=== PATIENT | female | born 1985 | race Caucasian/White ===

== ENCOUNTER 2024-02-12 07:21 | Outpatient (AMB) | payer OTHER, SELFPAY ==
[2024-02-12 07:34] VITALS: BP 122/78; PULSE 75; O2SAT 98; BMI 28.4
--- NOTE | 2024-02-12 07:34 | MHC.PC.OV ---
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: No Accompanied by: Self / Same As Patient Allergies No Known Allergies [No Known Allergies*] Allergy (Verified 02/12/24 07:44) Medication List - Last Reconciled 02/12/24 by Shona Sams MD No Known Home Meds Tobacco use date assessed: 02/12/24 Dental Screening Dental Screen Date: 02/12/24 Did you have a dental visit in the last 12 months?: No Did you have a dental problem in the last 6 months where you did not have access to dental care?: No Was dental information given to patient?: Patient has dentist HPI HPI Comments History of Present Illness Details This is a 38-year-old female that comes for her physical exam as a new patient. Last Pap smear was a year or 2 ago and he was normal as per patient. She does complains of having bronchitis once a year and requiring rescue inhaler that seems to help most likely due to mild persistent asthma. Has never had a pulmonary function test and this is why I will refer her to pulmonology. [facility] Surgical History (Updated 02/12/24 @ 07:48 by Shona Sams MD) Previous section Family History Mother Diabetes Father No problems noted. Brother No problems noted. Brother No problems noted. Sister Hypercholesteremia Son No problems noted. Son No problems noted. Daughter No problems noted. Other Mental health disorder Social History (Updated 02/12/24 @ 07:48 by Shona Sams MD) Housing: House Alcohol intake: current Alcohol intake frequency: holidays/special occasions only Alcohol type: beer and other Patient Tobacco Use Status: Never used Tobacco Tobacco use type: Cigarette e-Cigarette/Vaping Use: Never Used Second Hand Smoke Exposure: No service: No Current occupational status: unemployed Current occupational exposures/hazards: No Cognitive needs: No Hearing needs: No Vision needs: Yes Questionnaire PHQ-9 Over the last 2 weeks, how often have you been bothered by any of the following problems? 1. Little interest or pleasure in doing things: not at all 2. Feeling down, depressed, or hopeless: not at all 3. Trouble falling or staying asleep, or sleeping too much: not at all 4. Feeling tired or having little energy: not at all 5. Poor appetite or overeating: not at all 6. Feeling bad about yourself - or that you are a failure or have let yourself or your family down: not at all 7. Trouble concentrating on things, such as reading the newspaper or watching television: not at all 8. Moving or speaking so slowly that other people could have noticed. Or the opposite - being so fidgety or restless that you have been moving around a lot more than usual: not at all 9. Thoughts that you would be better off or of hurting yourself in some way: not at all Total score: 0 Depression Screening Interpretation: Negative Depression Screening Done: Yes 09604 - PHQ-9 Billing: Yes Source: Developed by Drs. Benjamin Bae, Bree Almendarez, Damián Campos and colleagues, with an educational karen from [employer]. Thrive Questionnaire Date Thrive assessed: 02/12/24 I am a: Patient What is your living situation today?: I have a steady place to live Within the past 12 months, did the food you bought not last and you didn't have the money to get more?: Never true Within the past 12 months, did you worry whether your food would run out before you got money to buy more?: Never true Do you have trouble paying for medicines?: No Do you have trouble getting transportation to medical appointments?: No Do you have trouble paying your heating and electricity bill?: No Do you have trouble taking care of your child, family member or friend?: No Do you have trouble with day-to-day activities such as bathing, preparing meals, shopping, managing finances, etc.?: No Are you currently unemployed and looking for a job?: No Are you interested in more education?: No Currently or been in a relationship where the following occur: No concerns reported THRIVE Score: 0 AUDIT C Alcohol Use Questionnaire (AUDIT-C) 1. How often do you have a drink containing alcohol?: Monthly or less 2. How many drinks containing alcohol do you have on a typical day when you are drinking?: 1 or 2 3. How often do you have six or more drinks on one occasion?: Never Total Score: 1 Score Reviewed/Action Taken: No DINORA-7 AMB Questionnaire DINORA-7 Date DINORA - 7 assessed: 02/12/24 Feeling nervous, anxious, or on edge: 0 = Not at all Not being able to stop or control worryin = Not at all Worrying too much about different things: 0 = Not at all Trouble relaxin = Not at all Being so restless that it is hard to sit still: 0 = Not at all Becoming easily annoyed or irritable: 0 = Not at all Feeling afraid as if something awful might happen: 0 = Not at all Total DINORA-7 score (0-4 normal; 5-9 mild; 10-14 moderate; 15-21 severe): 0 Source: Developed by Drs. Benjamin Bae, Bree Almendarez, Damián Campos and colleagues, with an educational karen from [employer]. DINORA-7 Assessment Billing DINORA-7 Assessment Tool: DINORA-7 Assessment 04479 Review of Systems Const All systems reviewed & are unremarkable except as noted in HPI and below Card Denies chest pain at rest, Denies chest pain with activity, Denies edema, Denies irregular heart rhythm, Denies claudication, Denies dyspnea, Denies dyspnea on exertion, Denies orthopnea, Denies paroxysmal nocturnal dyspnea and Denies slow heart rate Resp Denies cough, Denies dyspnea and Denies dyspnea on exertion GI Denies abdominal pain, Denies change in bowel habits, Denies excessive flatus, Denies nausea and Denies vomiting Denies urinary incontinence, Denies urinary hesitancy and Denies urinary urgency Musc Denies abnormal gait, Denies atrophy, Denies deformity and Denies limited range of motion Neuro Denies abnormal gait and Denies lack of coordination Physical exam (Primary Care) Vital Signs: Last Vital Signs Pulse 75 02/12/24 07:34 BP 122/78 02/12/24 07:34 Pulse Ox 98 02/12/24 07:34 Oxygen Delivery Method Room Air 02/12/24 07:34 BMI result Body Mass Index 28.4 Tobacco/Smoking Status: Tobacco use Status Tobacco use date assessed 02/12/24 02/12/24 07:43 Patient Tobacco Use Status Never used Tobacco 02/12/24 07:43 Tobacco use type Cigarette 02/12/24 07:43 e-Cigarette/Vaping Use Never Used 02/12/24 07:43 PHQ-9: PHQ-9 Score PHQ-9: Total score 0 02/12/24 07:43 Depression Screening Interpretation: Negative Thrive Assessment: Date of Thrive Assessment Date Thrive assessed 02/12/24 02/12/24 07:43 Currently or been in a relationship where the following occur: No concerns reported Const Orientation/consciousness: patient oriented x3 HENMT Head: Yes normal to inspection, Yes normocephalic and Yes atraumatic Ears: external ears normal Eyes General: appearance normal, both eyes and all related structures Eyelids: Yes eyelids normal Conjunctivae: conjunctivae normal Neck Neck: Yes normal visual inspection and Yes supple Resp Effort & Inspection: normal respiratory effort Auscultation: clear to auscultation bilaterally Cardio Jugular venous distension: no JVD Rate: regular rate Rhythm: regular rhythm Heart sounds: S1 normal heart sound present and S2 normal heart sound present GI Inspection: Yes normal to inspection Palpation (GI): Soft to palpation and nontender Auscultation: normal bowel sounds Skin General skin exam: no rashes or lesions noted Neuro General: patient oriented x3 and no focal motor deficits Extrem General: Yes full ROM Psych Appearance: grossly normal Assessment and Plan Assessment & Plan (1) Physical exam: Code(s): Z00.00 - Encounter for general adult medical examination without abnormal findings Plan: Repeat in a year. (2) Mild persistent asthma: Code(s): J45.30 - Mild persistent asthma, uncomplicated Qualifiers: Asthma complication type: uncomplicated Qualified Code(s): J45.30 - Mild persistent asthma, uncomplicated Plan: Referred to pulmonology. Orders: Orders Thyroid Stimulating Hormone Today E66.3 - Overweight Comprehensive [place]. Panel Fast Today Z00.00 - Encounter for general adult medical examination without abnormal findings Lipid Panel Today Z00.00 - Encounter for general adult medical examination without abnormal findings Complete Blood Count Auto Diff Today E66.3 - Overweight Referrals Pulmonology Referral J45.30 - Mild persistent asthma, uncomplicated Coding Level of Care Code Tele New Pt Level 3 (92191) New Pt Prev Care 18-39yr(15247 Diagnoses Physical exam Z00.00 Mild persistent asthma without complication J45.30 Asthma complication type: uncomplicated Additional Codes DINORA-7 Assessment Billing - DINORA-7 Assessment Tool: DINORA-7 Assessment 86700 ([id number]) Time Spent (min) 32
== END 2024-02-12 08:02 | disposition home or self-care (01) ==
PROVIDERS: PCP Internal Medicine; Visit Provider Internal Medicine
DX: Z00.00 Encounter for general adult medical examination without abnormal findings (principal); J45.30 Mild persistent asthma, uncomplicated
CPT/HCPCS: 99385

== ENCOUNTER 2024-04-17 08:08 | Outpatient (REF) | payer OTHER, SELFPAY ==
[2024-04-17 10:15] LABS: MANUAL DIFF FLAG NO
[2024-04-17 10:19] LABS: Basophils Percent Auto 0.7 % (0-2); Eosinophils Absolute Auto 0.1 X10*3/uL (0.0-0.4); Eosinophils Percent Auto 2.3 % (0-4); Hematocrit 44.5 % (37.0-47.0); Hemoglobin 14.6 g/dl (12.0-16.0); Imm Gran Abs Auto 0.02 X10*3/uL (0.00-0.03); Imm Gran Pct Auto 0.4 % (0.0-0.4); Lymphocytes Absolute Auto 1.4 X10*3/uL (1.2-4.9); Lymphocytes Percent Auto 24.8 % (20-40); Mean Corpuscular HGB Conc 32.8 g/dl (31.0-35.0); Mean Corpuscular Hemoglobin 30.1 pg (27.0-33.0); Mean Corpuscular Volume 91.8 fL (80.0-98.0); Mean Platelet Volume 11.1 fL (9.4-12.3); Monocytes Absolute Auto 0.6 X10*3/uL (0.1-1.2); Monocytes Percent Auto 11.2 % (2-11); Neutrophils Absolute Auto 3.4 x10*3/uL (2.0-8.3); Neutrophils Percent Auto 60.6 % (45-73); Platelet Count 220 X10*3/uL (160-400); Red Blood Count 4.85 X10*6/uL (4.20-5.50); Red Cell Distribution Width 11.7 % (11.0-16.0); White Blood Count 5.6 X10*3/uL (4.8-10.8)
[2024-04-17 10:45] LABS: Alanine Aminotransferase 18 U/L (0-31); Albumin Level 4.3 g/dL (3.5-5.0); Alkaline Phosphatase 58 U/L (39-117); Anion Gap 12 (12-20); Aspartate Amino Transferase 15 U/L (5-31); Bilirubin Total 0.7 mg/dL (0.0-1.0); Blood Urea Nitrogen 14 mg/dL (9-16); Calcium 9.4 mg/dL (8.4-10.2); Carbon Dioxide 26 mmol/L (22-29); Chloride 106 mmol/L (96-108); Cholesterol 208 mg/dL (<200); Estimated Glomerular Filt Rate > 60; Glucose Fasting 90 mg/dL (60-99); HDL Cholesterol 53 mg/dL (>40); LDL Cholesterol Calculated 137 mg/dL (<100); Potassium 4.2 mmol/L (3.3-5.1); Sodium 140 mmol/L (135-145); Triglycerides 93 mg/dL (<150)
[2024-04-17 11:04] LABS: Thyroid Stimulating Hormone 1.57 uIU/mL (0.32-4.0)
== END 2024-04-17 08:09 | disposition home or self-care (01) ==
LOC: HO.HMGCLDS 08:08
PROVIDERS: PCP Internal Medicine; Visit Provider Internal Medicine
DX: Z00.00 Encounter for general adult medical examination without abnormal findings (principal); E66.3 Overweight
CPT/HCPCS: 36415; 80053; 80061; 84443; 85025

== ENCOUNTER 2025-02-16 07:21 | Outpatient (AMB) | payer OTHER, SELFPAY ==
--- NOTE | 2025-02-16 07:39 | A.OFFPC_ITS ---
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 Accompanied by: Self / Same As Patient Allergies No Known Allergies (No Known Allergies*) Allergy (Verified 02/16/25 07:44) Medication List - Last Reconciled 02/16/25 by Shona Sams MD No Known Home Meds Tobacco use date assessed: 02/16/25 Dental Screening Dental Screen Date: 02/16/25 Did you have a dental visit in the last 12 months?: Yes Did you have a dental problem in the last 6 months where you did not have access to dental care?: No Was dental information given to patient?: Patient has dentist HPI HPI Comments History of Present Illness Details The patient is a 39-year-old female presenting with a physical exam. She has a history of mild persistent asthma, which sometimes causes discomfort during reading, prompting a referral to pulmonology for further evaluation. Additionally, she has elevated cholesterol levels and has been making dietary changes to address this issue. A Pap smear was conducted two days ago, and the results were normal. [facility] Surgical History Previous section Family History (Updated 02/16/25 @ 07:48 by Shona Sams MD) Mother Diabetes Father Parkinson disease Brother No problems noted. Brother No problems noted. Sister Hypercholesteremia Son No problems noted. Son No problems noted. Daughter No problems noted. Other Mental health disorder Social History Housing: House Alcohol intake: current Alcohol intake frequency: holidays/special occasions only Alcohol type: beer and other Patient Tobacco Use Status: Never used Tobacco e-Cigarette/Vaping Use: Never Used Second Hand Smoke Exposure: No service: No Current occupational status: unemployed Current occupational exposures/hazards: No Cognitive needs: No Hearing needs: No Vision needs: Yes Questionnaire PHQ-9 Over the last 2 weeks, how often have you been bothered by any of the following problems? 1. Little interest or pleasure in doing things: not at all 2. Feeling down, depressed, or hopeless: not at all 3. Trouble falling or staying asleep, or sleeping too much: not at all 4. Feeling tired or having little energy: not at all 5. Poor appetite or overeating: not at all 6. Feeling bad about yourself - or that you are a failure or have let yourself or your family down: not at all 7. Trouble concentrating on things, such as reading the newspaper or watching television: not at all 8. Moving or speaking so slowly that other people could have noticed. Or the opposite - being so fidgety or restless that you have been moving around a lot more than usual: not at all 9. Thoughts that you would be better off or of hurting yourself in some way: not at all Total score: 0 Depression Screening Interpretation: Negative Depression Screening Done: Yes 12084 - PHQ-9 Billing: Yes Source: Developed by Drs. Benjamin Bae, Bree Almendarez, Damián Campos and colleagues, with an educational karen from [employer]. Thrive Questionnaire Date Thrive assessed: 02/16/25 I am a: Patient What is your living situation today?: I have a steady place to live Within the past 12 months, did the food you bought not last and you didn't have the money to get more?: Never true Within the past 12 months, did you worry whether your food would run out before you got money to buy more?: Never true Do you have trouble paying for medicines?: No Do you have trouble getting transportation to medical appointments?: No Do you have trouble paying your heating and electricity bill?: No Do you have trouble taking care of your child, family member or friend?: No Do you have trouble with day-to-day activities such as bathing, preparing meals, shopping, managing finances, etc.?: No Are you currently unemployed and looking for a job?: No Are you interested in more education?: No Please select the resources that you would like help with: None Currently or been in a relationship where the following occur: No concerns reported THRIVE Score: 0 AUDIT C Alcohol Use Questionnaire (AUDIT-C) 1. How often do you have a drink containing alcohol?: 2-4 times a month 2. How many drinks containing alcohol do you have on a typical day when you are drinking?: 1 or 2 3. How often do you have six or more drinks on one occasion?: Never Total Score: 2 Score Reviewed/Action Taken: No DINORA-7 AMB Questionnaire DINORA-7 Date DINORA - 7 assessed: 02/16/25 Feeling nervous, anxious, or on edge: 0 = Not at all Not being able to stop or control worryin = Not at all Worrying too much about different things: 0 = Not at all Trouble relaxin = Not at all Being so restless that it is hard to sit still: 0 = Not at all Becoming easily annoyed or irritable: 0 = Not at all Feeling afraid as if something awful might happen: 0 = Not at all Total DINORA-7 score (0-4 normal; 5-9 mild; 10-14 moderate; 15-21 severe): 0 Source: Developed by Drs. Benjamin Bae, Bree Almendarez, Damián Campos and colleagues, with an educational karen from [employer]. DINORA-7 Assessment Billing DINORA-7 Assessment Tool: DINORA-7 Assessment 30897 Review of Systems Const All systems reviewed & are unremarkable except as noted in HPI and below Card Denies chest pain at rest, Denies chest pain with activity, Denies edema, Denies irregular heart rhythm, Denies claudication, Denies dyspnea, Denies dyspnea on exertion, Denies orthopnea, Denies paroxysmal nocturnal dyspnea and Denies slow heart rate Resp Denies cough, Denies dyspnea, Denies dyspnea on exertion and Reports wheezing GI Denies abdominal pain, Denies change in bowel habits, Denies excessive flatus, Denies nausea and Denies vomiting Denies urinary incontinence, Denies urinary hesitancy and Denies urinary urgency Musc Denies abnormal gait, Denies atrophy, Denies deformity and Denies limited range of motion Skin/Breast Denies bleeding lesions, Denies changing lesions and Denies rash Neuro Denies abnormal gait, Denies behavioral changes and Denies lack of coordination Psych Denies behavioral changes Aller/Immun Reports wheezing Physical exam (Primary Care) Vital Signs: Last Vital Signs BP 112/80 02/16/25 07:40 BMI result Body Mass Index 28.6 Tobacco/Smoking Status: Tobacco use Status Tobacco use date assessed 02/16/25 02/16/25 07:43 Patient Tobacco Use Status Never used Tobacco 02/16/25 07:43 Tobacco use type 02/16/25 07:43 e-Cigarette/Vaping Use Never Used 02/16/25 07:43 PHQ-9: PHQ-9 Score PHQ-9: Total score 0 02/16/25 07:43 Depression Screening Interpretation: Negative Thrive Assessment: Date of Thrive Assessment Date Thrive assessed 02/16/25 02/16/25 07:43 Currently or been in a relationship where the following occur: No concerns reported HENAR Head: Yes normal to inspection, Yes normocephalic and Yes atraumatic Ears: external ears normal Eyes General: appearance normal, both eyes and all related structures Eyelids: Yes eyelids normal Conjunctivae: conjunctivae normal Neck Neck: Yes normal visual inspection and Yes supple Resp Effort & Inspection: normal respiratory effort Auscultation: clear to auscultation bilaterally Cardio Jugular venous distension: no JVD Rate: regular rate Rhythm: regular rhythm Heart sounds: S1 normal heart sound present and S2 normal heart sound present GI Inspection: Yes normal to inspection Palpation (GI): Soft to palpation and nontender Auscultation: normal bowel sounds Skin General skin exam: no rashes or lesions noted Neuro General: no focal motor deficits Extrem General: Yes full ROM Psych Appearance: grossly normal Coding Level of Care Code Est Pt Level 3 (72237) Est Pt Prev Care 18-39y(20660) Diagnoses Physical exam Z00.00 Mild persistent asthma without complication J45.30 Asthma complication type: uncomplicated Additional Codes PHQ-9 - 69383 - PHQ-9 Billing: Yes ([id number]) DINORA-7 Assessment Billing - DINORA-7 Assessment Tool: DINORA-7 Assessment 40570 ([id number]) Time Spent (min) 32 Assessment & Plan Assessment & Plan (1) Physical exam: Code(s): Z00.00 - Encounter for general adult medical examination without abnormal findings Category: Medical (2) Mild persistent asthma: Code(s): J45.30 - Mild persistent asthma, uncomplicated Category: Medical Qualifiers: Asthma complication type: uncomplicated Qualified Code(s): J45.30 - Mild persistent asthma, uncomplicated Plan The patient will be referred to pulmonology for further evaluation of her mild persistent asthma, which occasionally causes discomfort during reading. She is advised to continue dietary modifications to manage her elevated cholesterol levels. I discussed with the patient the need for a pulmonology referral to address her mild persistent asthma, which sometimes causes discomfort during reading. We also talked about the importance of continuing dietary changes to manage her elevated cholesterol levels. Orders: Orders Lipid Panel Today E78.5 - Hyperlipidemia, unspecified Referrals Pulmonology Referral J45.30 - Mild persistent asthma, uncomplicated Patient Instructions: - Follow up with pulmonology as referred for asthma evaluation. - Continue dietary changes to help manage cholesterol levels.
[2025-02-16 07:40] VITALS: BP 112/80; BMI 28.6
== END 2025-02-16 07:57 | disposition home or self-care (01) ==
LOC: HO.HMCH 07:22
PROVIDERS: PCP Internal Medicine; Visit Provider Internal Medicine
DX: Z00.00 Encounter for general adult medical examination without abnormal findings (principal); J45.30 Mild persistent asthma, uncomplicated

== ENCOUNTER → 2025-02-16 07:21 | Outpatient (BNVA) | payer OTHER, SELFPAY | PROVIDERS: PCP Internal Medicine; Visit Provider Internal Medicine | DX: Z00.00 Encounter for general adult medical examination without abnormal findings (principal); E78.5 Hyperlipidemia, unspecified; J45.30 Mild persistent asthma, uncomplicated | CPT/HCPCS: 96127; 99212; 99395 ==

== ENCOUNTER 2025-03-27 14:22 | Outpatient (AMB) | payer OTHER, SELFPAY ==
--- OUTSIDE RECORDS SUMMARY | 2025-03-27 14:25 | XMS_ITS | Encounter Summary ---
Author Organization [facility] Address [address] [place] [address] Phone Care Team Providers Care Computer Forensic Specialist Name Role Phone Michelle Barrios MD Primary Care Provider Encounter Details Date Type Department Care Team (Late st Contact Info) Description 04/07/2019 Procedure Pass [facility] L&D Procedures [address] [place] [address] Social History Tobacco Use Types Packs/Day Years Used Date Smoking Tobacco: Never Smokeless Tobacco: Never Alcohol Use Standard Drinks/Week Comments Yes 0 (1 standard drink = 0.6 oz pur e alcohol) Comments No Sex and Gender Information Value Date Recorded Sex Assigned at Not on file Legal Sex Female 3:18 PM EST Gender Identity Not on file Sexual Orientation Not on file Occupation Industry Job Start Date Job End Date Self-employed Not on file Not on file Not on file documented as of this encounter Plan of Treatment Not on file documented as of this encounter Visit Diagnoses Not on filedocumented in this encounter Care Teams Computer Forensic Specialist Relationship Specialty Start Date End Date Michelle Barrios MD [address] [place] [address] [place] [phone] PCP - General Internal Medicine 09/11/18 documented as of this encounter Additional Source Comments The information contained in this document represents components of the legal health record. It is not the complete legal health record.[facility]
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
[2025-03-27 14:31] VITALS: BP 108/62; PULSE 61; O2SAT 98; BMI 28.8
== END 2025-03-27 14:53 | disposition home or self-care (01) ==
LOC: HO.HPSW 14:23
PROVIDERS: PCP Internal Medicine; Referring Provider Internal Medicine; Visit Provider Nurse Practitioner Family
DX: J45.909 Unspecified asthma, uncomplicated (principal); R05.9 Cough, unspecified
CPT/HCPCS: 99203

== ENCOUNTER → 2025-03-27 14:22 | Outpatient (BNVA) | payer OTHER, SELFPAY | PROVIDERS: PCP Internal Medicine; Referring Provider Internal Medicine; Visit Provider Nurse Practitioner Family | DX: J45.30 Mild persistent asthma, uncomplicated (principal); R05.9 Cough, unspecified | CPT/HCPCS: 99202 ==

== ENCOUNTER 2025-04-09 08:41 | Outpatient (REF) | payer OTHER, SELFPAY ==
--- OUTSIDE RECORDS SUMMARY | 2022-09-25 03:15 | XMS_ITS | Continuity of Care Document ---
Author Organization [facility] Address [address] [place] [address] Phone Care Team Providers Care Engraver Flatware Name Role Phone Call Donovan PASCUAL Unavailable Unavailable Allergies, Adverse Reactions, Alerts Substance Reaction Status Criticality No Known Allergies Active No Inform ation Procedures Procedure Date Offic/outpt E&m [facility] 3 Current Non-user tobacco SYST BP LT 130 MM HG Sys bp less 140 DIAST BP <80 MM HG Mccracken bp less 90 MEDICATION RECONCILIATION WEIGHT RECORD BODY MASS INDEX DOCD Advance Directives Directive Yes / No Effective Date File Name No Information Encounters Encounter Description Practice Location Reason(s) For Visit Diagnoses Date Provider Offic/outpt E&m [facility], [address], [place], [place], [id number], [place] tel:[phone] [facility] cough (chief complaint) Dietary counseling and surveillancePersistent coughBody mass index (BMI) 27.0-27.9, adult 3 Call [address], [place], [place], [id number] , [place]. tel:[phone] Family History Family Member Type Diagnosis Age At Onset No Information Payers Payer name Insurance type Covered green party ID [id number] Social History Type Description Quantity Date Captured Comments Alcohol Use Details Unknown Caffeine Use Details Unknown Tobacco Use Status Current non-smoker Smoking Status Never smoker Non-Smoking Tobacco Use Details : No Details Available : No Details Available Sex Female Vital Signs Date / Time: Height Weight BMI Pulse Rate Blood Pressure Temperature Respiratory Rate Body Surface Area Head Circumference Head Circ. Percentile Wt./Nahid. Percentile BMI percentile Pulse Ox Inhaled Ox 7:21 AM 64.50 in 75.115 kg (165.60 lbs) 27.9 9 kg/m eter (2) 79 /min 119/79 mm[Hg] 97.70 F 18 /min 1.85 meter(2) 98 % 21 % Chief Complaint And Reason For Visit From encounter dated '09/25/2022 07:15'. cough (chief complaint). Description: Onset: sudden. Severity: moderate-severe. The patient's Self describes the cough as dry and non-productive. It occurs persistently. The problem has not changed. Symptoms are aggravated by cold air and lying down. Relieving factors include OTC cough syrup. Associated symptoms include cough and fatigue. Pertinent negatives include chills, dyspnea, dyspnea on exertion, fever, heartburn, nasal congestion, night sweats, pleuritic pain, post-nasal drainage, rhinitis and rhinorrhea. Additional information: PT c/o persistent cough that started 10 days ago her entire family had a uri at the time, her cough has persisted, she has tried OTC cough syrup but reports it barely works. Plan Of Treatment Date Type Action Status Goal HPV. Due on due Goal Pap/HPV testing. Due on due Goal SBIRT. Due on du e Goal Tdap. Due on due Goal HIV screen. Due on due Goal Health Promotion Plan. Due o n due Goal Depression Screening. Due on due Goal Flu-Quad 3 yrs and older. Du e on due Goal Hep C Screening. Due on due Goal Td vaccine. Due on due Goal Dietary management education , guidance, and counseling completed Goal Dietary management education , guidance, and counseling completed History Of Present Illness Encounter Date Complaint History Of Prese nt Illness cough Onset: sudden. S everity: moderate-severe. The patient's Self describes the cough as dry and non-productive. It occurs persistently. The problem has not changed. Symptoms are aggravated by cold air and lying down. Relieving factors include OTC cough syrup. Associated symptoms include cough and fatigue. Pertinent negatives include chills, dyspnea, dyspnea on exertion, fever, heartburn, nasal congestion, night sweats, pleuritic pain, post-nasal drainage, rhinitis and rhinorrhea. Additional information: PT c/o persistent cough that started 10 days ago her entire family had a uri at the time, her cough has persisted, she has tried OTC cough syrup but reports it barely works. Instructions Date Instruction Additional Infor nel Giving encouragement to exercise Related to Dietary counseling and surveillance Dietary management e ducation, guidance, and counseling Related to Dietary counseling and surveillance Giving encouragement to exercise Related to Body mass index [BMI] 27.0-27.9, adult Dietary management e ducation, guidance, and counseling Related to Body mass index [BMI] 27.0-27.9, adult Health Promotion Plan Assessments Type Assessment Date assessment Dietary counseling and surveilla nce assessment Persistent cough assessment Body mass index [BMI] 27.0-27.9, adult impression VSS, BS clear Mental Status Date Cognitive Assessment Orientation - [place] ed to time, place, person, situation.
--- NOTE | ~2025-04-09 | XR_ITS ---
EXAMINATION: XR CHEST 2 VIEWS HISTORY: R05.9 - Cough, unspecified COMPARISON: There are no prior studies available for comparison. FINDINGS: PA and lateral views of the chest are submitted. The lungs are expanded and clear. There is no pleural effusion, pneumothorax, or pulmonary vascular congestion. The heart is normal in size. The bones are intact. XR/XR chest 2V IMPRESSION: Normal examination of the chest. Electronically signed by: Benjamin Arriaga MD 04/09/2025 09:24 AM EDT
--- OUTSIDE RECORDS SUMMARY | 2025-04-09 09:24 | XMS_ITS | Clinical Summary ---
Author Organization [facility] Address [address] [place] [address] Phone Care Team Providers Care Pad Making Machine Operator Name Role Phone Michelle Barrios MD Primary Care Provider Allergies No known active allergies Medications vitamins-DHA (DUET DHA ) 29 mg iron-1 mg -430 mg Cmpk Take 1 packet by mouth daily. Active Active Problems Problem Noted Date Diagnosed Date Polyhydramnios in second trimester 07/07/2020 Overview (07/07/2020): Not an official diagnosis at this time 05/14/20 MVP 9 on anatomy u/s, possibly s/t diastasis recti 06/22/20 L2 did not appreciate poly; no measurement listed in report. Nl cfDNA. Pt has follow-up u/s in early Jul Assessment & Plan (07/07/2020 3:02 PM EST): Reviewed ultrasounds and course so far. Pt had normal cfDNA. Discussed possible explanations of her experience, including polyhydramnios or difficulty interpreting exam d/t diastasis. Recommended she f/u with Dr. Tripathi at next u/s (around 07/18) to see if there's an official diagnosis or not. Samantha would consider delivering at [facility] if Dr. Tripathi is concerned for physical abnormalities and will discuss with her next month. Discussed possible association with GDM and recommended screening sooner rather than later. No hx of GDM. Supervision of other normal , antepartu m 03/18/2020 Overview (07/07/2020): DEISY/ - planning repeat c/s OB-CMI score: 1 Group PN care? * Rh AB+ GC/Chlam * PAP * Tdap * Flu * Hgb * GTT * 28 wk Repeat RPR declined GBS * PPBC * screening Normal NT Assessment & Plan (07/07/2020 3:01 PM EST): Samantha is doing OK, no OB concerns. Feeling anxiety surrounding possible polyhydramnios dx and f/u. Also experiencing more discomfort this - see prob list. Reviewed CBC and GTT for before 28 weeks. She declines repeat Syphilis. NV in person at 28 weeks. Warning signs reviewed. Assessment & Plan (04/13/2020 10:42 PM EDT): Samantha is feeling well. Had NT today. Happy to see baby. Normal physical exam. Pap smear collected. Anatomy scan ordered and scheduled. Rectus diastasis 05/12/2019 Overview (07/07/2020): Told by Dr. Tripathi to pursue surgical treatment PP. Assessment & Plan (07/07/2020 2:55 PM EST): Has been having lots of physical discomforts this . Feels much more for this GA. Discussed stretches and exercises, as well as heat/ice, Tylenol, and showers for comfort. She was told by Dr. Tripathi to pursue surgical tx PP - she will consider. History of delivery 09/16/2018 Overview (04/13/2020): Hx c/s x 2 Counseling done. Assessment & Plan (04/13/2020 10:43 PM EDT): Has been counseled regarding repeat vs. TOLAC. Please clarify plans at next visit. Assessment & Plan (03/06/2019 1:37 PM EDT): The patient presents to discuss the option of LASHAUN after C/S vs scheduled C/S. We discussed the risk of uterine rupture with a prior C/S as approximately 0.5-1%. We discussed the risks to both mother and baby should this occur. Maternal risks include hemorrhage, transfusion, infection, and injury to internal organs. or risks include decreased blood supply to fetus, which could result in hypoxia, neurologic injury, or . We discussed the management recommendations for TOLAC including continuous monitoring, IV insertion in labor, and blood work on admission. We discussed that in patients whose first C/S was for non-repetitive indications, such as breech or abnormal heart rate pattern before labor, there is about a 70-75% chance of having a successful . We discussed that in patients whose C/S was for a possibly recurrent indication like failure to progress or failure to descend there is a lower chance of success, approximately 50%. Success rates are best with spontaneous labor. We discussed limited tools for induction of labor in a patient attempting a TOLAC. We discussed that a successful would be safest for both mom and baby, that a scheduled C/S would be second safest, and that a failed trial of labor followed by a C/S holds the most risk. We discussed the difficulty in predicting who will have a successful . Options for awaiting labor and trial of vs scheduled C/S were discussed with the patient. All questions were answered, and the patient is committed to TOLAC. Entire visit counseling and coordination of care x 30 minutes. Resolved Problems Problem Noted Date Diagnosed Date Resolved Date Incisional infection 05/12/2019 020 Overview (05/12/2019): 4 wks post Was using nystatin and antibiotic cream 05/12: + erythema, and red satilites, probable yeast will cont w nystatin, instr keep clean and dry Encounter for postoperative wound check 04/22/2019 03/18/2020 Assessment & Plan (04/22/2019 3:54 PM EDT): Area of erythema may not be cellulitis, may be irritation or mild yeast from the intertriginous dampness; apply antibx ointment to the small open area, anti- fungal to the other area, try to keep dry; if the erythema spreads (I outlined), take oral keflex - Rx sent to use prn. May cause thrush in baby Normal , unspecified trimester 04/07/2019 03/18/2020 Rubella non-immune status, antepartum 10/02/2018 05/12/2019 Supervision of normal 09/16/2018 03/18/2020 Overview (03/27/2019): CNM Childbirth Ed- declines Group PN care- enrolled in group 5 Dates by LMP confirmed by first tri USN GC/chl neg/neg 09/16/18 Rh pos Tdap 02/04/19 Flu * Hgb 12.6 GTT 102 GBS neg PPBC condms screening - low risk first tri screen Chart reviewed GL Assessment & Plan (03/27/2019 10:34 AM EDT): Samantha is doing well, no concerns. Feeling excited about labor and delivery. Patiently waiting. Unsure of position today - u/s ordered. +FM. Denies UCs, VB, LOF. Labor and warning signs reviewed. Immunizations Immunization Administration Dates Next Due COVID-19 (Pre-06/04) Pfizer Vaccine, mRNA, PF ,11/21/2020 Influenza Quadrivalent Preservative Free IM 06/14 MMR 04/10/2019 Tdap 02/04/2019 Family History Medical History Relation Comments Diverticulitis Father Other Father GERD Relation Status Comments Daughter Alive Father Alive Mother Alive Son Alive Social History Tobacco Use Types Packs/Day Years Used Date Smoking Tobacco: Never Smokeless Tobacco: Never Alcohol Use Standard Drinks/Week Comments Not Currently 0 (1 standard drink = 0.6 oz pur e alcohol) Education Answer Date Recorded Are you interested in more education? Not on fior e 12/08/2022 Are you concerned about learning? Not on file 12/08/2022 No 12/08/2022 No 12/08/2022 Digital Access Answer Date Recorded No 01/06/2023 No 01/06/2023 No 01/06/2023 Reliable internet access at home? Not on file 01/06/2023 Device with a working camera? Not on file Comments No Sex and Gender Information Value Date Recorded Sex Assigned at Not on file Legal Sex Female 3:18 PM EST Gender Identity Not on file Sexual Orientation Not on file Occupation Industry Job Start Date Job End Date Self-employed Not on file Not on file Not on file Last Filed Vital Signs Vital Sign Reading Time Taken Comments Blood Pressure 118/78 07/07/2020 2:11 PM EST Pulse 83 04/11/2019 8:00 AM EDT Temperature 37 C (98.6 F) 04/11/2019 8:00 AM EDT Respiratory Rate 18 04/11/2019 8:00 AM EDT Oxygen Saturation 98% 04/11/2019 8:00 AM EDT Inhaled Oxygen Concentration - - Weight 84.7 kg (186 lb 12.8 oz) 07/07/2020 2:11 PM EST Height 157.5 cm (5' 2 ) 04/07/2019 9:53 AM EDT Body Mass Index 34.17 04/07/2019 9:53 AM EDT Plan of Treatment Health Maintenance Due Date Last Done Comments DEPRESSION SCREENING 1999 COVID-19 VACCINE (2023-2 5 season) 2024 12/12/2020, 11/21/2020 PAP SMEAR 04/09/2025 04/09/2020, 04/09/2020 Adult Td,Tdap Booster 02/04/2029 02/04/2019 HEPATITIS C SCREENING Completed 04/09/2020 , 09/17/2018 HIV ONE-TIME SCREENING (18-6 5 YEARS) Completed 04/09/2020 SMOKING STATUS SCREENING (On ce After 26 Yrs) Completed 04/09/2020 HEPATITIS A VACCINES Aged Out No long er eligible based on patient's age to complete this topic HIB VACCINES Aged Out No longer eligi ble based on patient's age to complete this topic MENINGOCOCCAL VACCINES (ACWY) Aged Out No longer eligible based on patient's age to complete this topic MENINGOCOCCAL VACCINES (B) Aged Out N o longer eligible based on patient's age to complete this topic PNEUMOCOCCAL VACCINES (0-49 years) Aged Out No longer eligible b ased on patient's age to complete this topic Medical Devices Not on file Procedures Procedure Name Priority Date/Time Associated Diagnosis Comments HEPATITIS C ANTIBODY, QUALITATIVE Routine 04/09/2020 4:23 PM EDT Supervision of other normal , antepartum PAP TEST Routine 04/09/2020 12:00 AM EDT from Last 3 Months or Most Recently Relevant to Health Maintenance Results * Hepatitis C antibody, qualitative (04/09/2020 4:23 PM EDT) HCV NON-REACTIV E NON-REACTI VE [facility] Blood 04/09/2020 4:23 PM EDT 04/09/2020 4:30 PM EDT us Leeanne Solano CN LAB BLOOD ORDERABLES Final R esult [address] [address] * Pap Smear (04/09/2020 12:00 AM EDT) 04/09/2020 04/12/2020 8:1 5 AM EDT Narrative SEE NARRATIVE - 04/15/2020 11:59 AM EDT [address] [address] Economic Manager: Yuliya Monsalve MD KNITTING SUPERVISOR Cytology Report FINAL DIAGNOSIS A. PAP SMEAR (SUREPATH) CE: SPECIMEN ADEQUACY: Satisfactory for evaluation; transformation zone absent/insufficient. Evaluation limited by thickness of cellular specimen. INTERPRETATION: NEGATIVE FOR INTRAEPITHELIAL LESION OR MALIGNANCY. Electronically Signed Out By: JUSTO Kim(ASCP) The Pap test is a screening test primarily for squamous cancers and precursors and has associated false-negative and false-positive results. New technologies such as liquid-based preparations may decrease but will not eliminate all false-negative results. Regular sampling and follow-up of unexplained clinical signs and symptoms are recommended to minimize false negative results. PROCEDURES/ADDENDA HPV Testing (Requested) Ordered Date: 04/12/2020 A. PAP SMEAR (SUREPATH) CE: Human Papilloma Virus Test Negative for high-risk human papillomavirus types 16, 18, 45 and the Other high risk probe set (Includes 31, 33, 35, 39, 51, 52, 56, 58, 59, 66, 68) by [email or web address] HR-HPV analysis. Clinical correlation is advised. This HPV test was performed at [facility], [address] [place] [address]. This test has been FDA approved for SurePath cervical cytology specimens. The accuracy and precision of this test for all other specimen sources has been verified in the Cytopathology Laboratory of the [facility] and has not been cleared or approved by the U.S. Food and Drug Administration. Clinical correlation is advised. CLINICAL HISTORY Date of Last Menstrual Period: Not Provided Menstrual History: Other Clinical Conditions: Screening Pap SPECIMEN SOURCE A: PAP SMEAR (SUREPATH) CE Patient Name: SAMANTHA HERRERA : 1985 (Age: 34) Sex: F Institution: [facility] Location: [facility] Date of Collection: 04/09/2020 Date of Reported: 04/15/2020 11:59 Results to: Kristen LONG Kristen Gandhi CNM CYTOLOGY ORDERABLES Fi nal Result SEE NARRATIVE from Last 3 Months or Most Recently Relevant to Health Maintenance Insurance [facility] Com[employer] Serve PARTNERSHIP ACO [facility] HEALTHY PARTNERSHIP ACO [facility] PARTNERSHIP 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 It is not the complete legal health record.[facility]
--- OUTSIDE RECORDS SUMMARY | 2025-04-09 09:24 | XMS_ITS | Encounter Summary ---
Author Organization [facility] Address [address] [place] [phone] Phone Care Team Providers Care Middle School Assistant Principal Name Role Phone Michelle Barrios MD Primary Care Provider Encounter Details Date Type Department Care Team (Late st Contact Info) Description 04/07/2019 Procedure Pass [facility] L&D Procedures [address] [place] [address] Social History Tobacco Use Types Packs/Day Years [...] on filedocumented in this encounter Care Teams Middle School Assistant Principal Relationship Specialty Start Date End Date Michelle Barrios MD [address] [place] [address] [place] [phone] PCP - General Internal Medicine 09/11/18 documented as of this encounter Additional Source Comments The information contained in this document represents components of the legal health record. It is not the complete legal health record.[facility]
[2025-04-09 10:33] LABS: Cholesterol 201 mg/dL (<200); HDL Cholesterol 54 mg/dL (>40); Triglycerides 82 mg/dL (<150)
== END 2025-04-09 08:42 | disposition home or self-care (01) ==
LOC: HO.LAB 08:41
PROVIDERS: Absent Provider Internal Medicine; PCP Internal Medicine; Visit Provider Nurse Practitioner Family
DX: E78.5 Hyperlipidemia, unspecified (principal); R05.9 Cough, unspecified
CPT/HCPCS: 36415; 71046; 80061

== ENCOUNTER → 2025-04-09 09:07 | Outpatient (BNV) | payer OTHER, SELFPAY | PROVIDERS: Absent Provider Internal Medicine; PCP Internal Medicine; Visit Provider Radiology Diagnostic Radiology | DX: R05.9 Cough, unspecified (principal) | CPT/HCPCS: 71046 ==

== ENCOUNTER 2025-04-30 14:46 | Outpatient (REF) | payer OTHER, SELFPAY ==
--- NOTE | 2025-04-30 14:50 | PFT_ITS ---
Flows: FEV1: 113 % of predicted at 3.40 L FVC: 117 % of predicted at 4.28 L FEV1/FVC: 80 % Bronchodilator response: Absent Volumes: Total lung capacity: 110 % of predicted at 5.67 L Residual volume: 108 % of predicted at 1.34 L Slow vital capacity: 111 % of predicted at 4.33 L Expiratory reserve volume: 64 % of predicted at 0.79 L Diffusion capacity: Normal Impression: No obstructive or restrictive ventilatory defect. No bronchodilator response. Essentially normal pulmonary function test. MTDD
[2025-04-30 15:27] VITALS: PULSE 66; O2SAT 100
--- OUTSIDE RECORDS SUMMARY | 2025-04-30 16:27 | XMS_ITS | Clinical Summary ---
Author Organization [facility] Address [address] [place] [address] Phone Care Team Providers Care Bread Slicer Machine Name Role Phone Michelle Barrios MD Primary [...] or not. 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 for physical [...] Date Last Done Comments DEPRESSION SCREENING 1999 INFLUENZA VACCINE (#1) 2025 07/07/2020 PAP SMEAR 04/09/2025 04/09/2020, 04/09/2020 COVID-19 VACCINE (3 - 2024-2 6 season) 2025 12/12/2020, 11/21/2020 Adult Td,Tdap Booster 02/04/2029 02/04/2019 HEPATITIS C [...] PM EDT) HCV NON-REACTIV E NON-REACTI VE [facility] Blood 04/09/2020 4:23 PM EDT 04/09/2020 4:30 PM EDT us Leeanne Solano [facility] LAB BLOOD ORDERABLES Final R esult [address] [address] * Pap Smear (04/09/2020 12:00 AM EDT) 04/09/2020 04/12/2020 8:1 5 AM EDT Narrative SEE NARRATIVE - 04/15/2020 11:59 AM EDT [address] [address] Water Plant Pump Operator: Yuliya Monsalve MD WEB PRESS OPERATOR HELPER OFFSET Cytology Report FINAL DIAGNOSIS A. PAP SMEAR [...] 52, 56, 58, 59, 66, 68) by [employer] HR-HPV analysis. Clinical correlation is advised. This HPV test was performed at [facility], [address] [place] [address]. This test has been FDA approved for SurePath cervical cytology specimens. The accuracy and precision of this test for all other specimen sources has been verified in the Cytopathology Laboratory of the [facility] and has not been cleared or approved by the U.S. Food and Drug Administration. Clinical correlation is advised. CLINICAL HISTORY Date of Last Menstrual Period: Not Provided Menstrual History: Other Clinical Conditions: Screening Pap SPECIMEN SOURCE A: PAP SMEAR (SUREPATH) CE Patient Name: SAMANTHA HERRERA : 1985 (Age: 34) Sex: F Institution: [facility] Location: [facility] Date of Collection: 04/09/2020 Date of Reported: 04/15/2020 11:59 Results to: Kristen LONG Kristen Gandhi CNM CYTOLOGY ORDERABLES nal Result SEE NARRATIVE from Last 3 Months or Most Recently Relevant to Health Maintenance Insurance [facility] [employer] PARTNERSH[employer] ACO [facility] HEALTHY PARTNERSHIP ACO [facility] HEALTHY PARTNERSHIP ACO [facility]CO [facility] PARTNERSHIP ACO [facility] HEALTHY PARTNERSHIP ACO [facility] HEALTHY PARTNERSHIP ACO [facility] HEALTHY PARTNERSHIP ACO [facility] HEALTHY PARTNERSHIP ACO Advance Directives For more information, please contact: [phone] (9AM - 5PM Emilie/[facility], Sunday-Sunday) Documents on File Type Date Recorded 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 It is not the complete legal health record.[facility]
--- OUTSIDE RECORDS SUMMARY | 2025-04-30 16:27 | XMS_ITS | Encounter Summary ---
Author Organization [facility] Address [address] [facility] [address] [place] [address] Phone Care Team Providers Care Ticket Puller Name Role Phone Michelle Barrios MD Primary Care Provider Encounter Details Date Type Department Care Team (Late st Contact Info) Description 04/07/2019 Procedure Pass [facility] L&D Procedures [address] [place] [address] Social History Tobacco Use Types Packs/Day Years [...] on filedocumented in this encounter Care Teams Ticket Puller Relationship Specialty Start Date End Date Michelle Barrios MD [address] [place] [address] [place] [phone] PCP - General Internal Medicine 09/11/18 documented as of this encounter Additional Source Comments The information contained in this document represents components of the legal health record. It is not the complete legal health record.[facility]
== END 2025-04-30 14:47 | disposition home or self-care (01) ==
LOC: HO.RESP 14:46
PROVIDERS: PCP Internal Medicine; Visit Provider Nurse Practitioner Family
DX: J45.30 Mild persistent asthma, uncomplicated (principal)
CPT/HCPCS: 94010; 94640; 94727; 94729

== ENCOUNTER → 2025-04-30 14:50 | Outpatient (BNV) | payer OTHER, SELFPAY | PROVIDERS: PCP Internal Medicine; Visit Provider Internal Medicine Pulmonary Disease | DX: J45.30 Mild persistent asthma, uncomplicated (principal) | CPT/HCPCS: 94060; 94727; 94729 ==

== ENCOUNTER 2025-06-05 15:46 | Outpatient (AMB) | payer OTHER, SELFPAY ==
[2025-06-05 15:51] VITALS: BP 120/64; PULSE 66; O2SAT 100; BMI 29.3
--- NOTE | 2025-06-05 15:51 | MHC.OFFVIS ---
Vital Signs 06/05/25 15:51 Height 5 ft 3.5 in Weight 168 lb 2 oz BMI 29.3 BP 120/64 Blood Pressure Location Rt brachial Position Sitting Pulse 66 Pulse Source Pulse Oximeter Pulse Oximetry (%) 100 Oxygen Delivery Method Room Air Intake Visit Reasons: Asthma Allergies No Known Allergies (No Known Allergies*) Allergy (Verified 06/05/25 15:53) HPI HPI Asthma: Details: Samantha is a pleasant 40 year old female, never smoker, with underlying asthma. She was initially referred after prolonged respiratory symptoms following an URI. At this time she reports resolution of cough and denies any other respiratory symptoms. Of note, she did participate in a 5K last weekend without any notable respiratory symptoms. Today she presents to review CXR and PFT results. She denies any visits related to respiratory distress since the last visit. [facility] Surgical History Previous section Family History (Updated 02/16/25 @ 07:48 by Shona Sams MD) Mother Diabetes Father Parkinson disease Brother No problems noted. Brother No problems noted. Sister Hypercholesteremia Son No problems noted. Son No problems noted. Daughter No problems noted. Other Mental health disorder Social History Housing: House Alcohol intake: current Alcohol intake frequency: holidays/special occasions only Alcohol type: beer and other Patient Tobacco Use Status: Never used Tobacco e-Cigarette/Vaping Use: Never Used Second Hand Smoke Exposure: No service: No Current occupational status: unemployed Current occupational exposures/hazards: No Cognitive needs: No Hearing needs: No Vision needs: Yes Review of Systems Const Denies chills, Denies excessive sweating, Denies fever(s), Denies headache(s) and Denies night sweats Eyes Denies dry eyes, Denies irritation and Denies itchy eyes ENT Reports Normal hearing present, Denies headache(s), Denies nasal congestion, Denies nasal discharge, Denies post nasal drip and Denies sore throat Card Denies chest pain, Denies chest pain at rest, Denies chest pain with activity, Denies claudication, Denies leg edema, Denies dyspnea, Denies dyspnea on exertion, Denies orthopnea and Denies paroxysmal nocturnal dyspnea Resp Denies chest congestion, Denies cough, Denies excessive phlegm production, Denies pain on inspiration, Denies pain with cough, Denies dyspnea, Denies dyspnea on exertion, Denies stridor and Denies wheezing Musc Denies myalgias Neuro Reports Normal hearing present and Denies headache(s) Endo Denies excessive sweating Vivek/Lymph Denies lymphadenopathy Aller/Immun Denies itchy eyes, Denies seasonal rhinorrhea and Denies wheezing Physical Exam Vital Signs: Last Vital Signs Pulse 66 06/05/25 15:51 Pulse Ox 100 06/05/25 15:51 Oxygen Delivery Method Room Air 06/05/25 15:51 BMI result Body Mass Index 29.3 Const General: cooperative, healthy appearing, comfortable, no acute distress, well developed and alert Orientation/consciousness: patient oriented x3 Limitations: no limitations HEENT Head: Yes normal to inspection, Yes normocephalic and Yes atraumatic Ears: hearing grossly normal bilaterally and external ears normal Eyes General: appearance normal, both eyes and all related structures Eyelids: Yes eyelids normal Sclerae: sclerae normal EOM: EOMs intact bilaterally Neck Neck: Yes normal visual inspection and Yes no lymphadenopathy Lymphatic: no lymphadenopathy noted Chest Chest palpation & inspection: normal inspection of the chest Resp Effort & Inspection: normal respiratory effort, able to speak in complete sentences, no audible wheezes, no cough, no stridor, not tachypneic, no tripod positioning and no use of accessory muscles Auscultation: clear to auscultation bilaterally Cardio Jugular venous distension: no JVD Rate: regular rate Rhythm: regular rhythm Skin Other: warm, dry General skin exam: no rashes or lesions noted Neuro General: patient oriented x3 Cranial nerves: Yes Normal hearing present Cognition (Neuro): normal cognition Gait exam (Neuro): Normal gait present Extrem General: Yes normal to inspection, Yes capillary refill normal, Yes no clubbing, cyanosis or edema and Yes no pedal edema Psych Appearance: grossly normal and well kempt Speech and movement: Normal speech and movement present and Clear speech present Affect: normal affect Attitude: cooperative Thought process: Normal thought process present Thought content: Normal thought content present Insight: Good insight present (Psych) Judgement: Good judgement present (Psych) Results Reviewed Results Reviewed: [address] [address] XRay Report Signed Patient: Samantha Lovett MR#: [id number] : 1985 Acct:[id number] Age/Sex: 39 / F ADM Date: 04/09/25 Loc: HO.LAB Attending Dr: Tierney Camarillo NP Ordering Physician: Tierney Camarillo NP Date of Service: 04/09/25 Procedure(s): XR chest 2V Accession Number(s): [id number] cc: Shona Grimes MD; Tierney Camarillo NP~ EXAMINATION: XR CHEST 2 VIEWS HISTORY: R05.9 - Cough, unspecified COMPARISON: There are no prior studies available for comparison. FINDINGS: PA and lateral views of the chest are submitted. The lungs are expanded and clear. There is no pleural effusion, pneumothorax, or pulmonary vascular congestion. The heart is normal in size. The bones are intact. XR/XR chest 2V IMPRESSION: Normal examination of the chest. Electronically signed by: Benjamin Arriaga MD 04/09/2025 09:24 AM EDT RP Dictated By: Benjamin Arriaga MD Signed By: <Electronically signed by Benjamin Arriaga MD in OV> 04/09/25923 DD/ 4 TD/TT: 04/09/25918 Career Development Associate: Assessment & Plan Assessment & Plan (1) Asthma: Code(s): J45.909 - Unspecified asthma, uncomplicated Category: Medical (2) Cough: Code(s): R05.9 - Cough, unspecified Category: Medical Plan Reviewed PFT which was suggestive of underlying asthma with elevated TLC, RV and DLCO in addition to bronchodilators in the small to medium airways. Will prescribe albuterol MDI PRN. She is aware to call if symptoms change especially if she contracts URI. CXR unremarkable. All questions were answered and patient is in agreement of plan. Will follow up in 3-6 months or sooner if needed. Medications: New albuterol sulfate 90 mcg/actuation 2 puffs inhalation Q4-6H PRN 1 ea 0RF shortness of breath or wheezing Coding Level of Care Code Est Pt Level 4 (80809) Diagnoses Asthma J45.909 Cough R05.9
--- OUTSIDE RECORDS SUMMARY | 2025-06-05 17:03 | XMS_ITS | Clinical Summary ---
Author Organization [facility] Address [address] [place] [address] Phone Care Team Providers Care Metal Sander Name Role Phone Michelle Barrios MD Primary [...] or not. 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 PAP SMEAR [...] 52, 56, 58, 59, 66, 68) by [employer] HR-HPV analysis. Clinical correlation is advised. This HPV test was performed at [facility], [address] [place] [address]. This test has been FDA approved for SurePath cervical cytology specimens. The accuracy and precision of this test for all other specimen sources has been verified in the Cytopathology Laboratory of the [facility] and has not been cleared or approved by the U.S. Food and Drug Administration. Clinical correlation is advised. CLINICAL HISTORY Date of Last Menstrual Period: Not Provided Menstrual History: Other Clinical Conditions: Screening Pap SPECIMEN SOURCE A: PAP SMEAR (SUREPATH) CE Patient Name: SAMANTHA HERRERA : 1985 (Age: 34) Sex: F Institution: [facility] Location: [facility] Date of Collection: 04/09/2020 Date of Reported: 04/15/2020 11:59 Results to: Kristen LONG Kristen Gandhi CNM CYTOLOGY ORDERABLES nal Result SEE NARRATIVE from Last 3 Months or Most Recently Relevant to Health Maintenance Insurance [facility] [employer] PARTNERSH[employer] ACO [facility] HEALTHY PARTNERSHIP ACO [facility] HEALTHY PARTNERSHIP ACO [facility]CO [facility] PARTNERSHIP ACO [facility] HEALTHY PARTNERSHIP ACO [facility] HEALTHY PARTNERSHIP ACO [facility] HEALTHY PARTNERSHIP ACO [facility] HEALTHY PARTNERSHIP ACO Advance Directives For more information, please contact: [phone] (9AM - 5PM Emilie/[facility], Sunday-Sunday) Documents on File Type Date Recorded 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 It is not the complete legal health record.[facility]
--- OUTSIDE RECORDS SUMMARY | 2025-06-05 17:03 | XMS_ITS | Encounter Summary ---
Author Organization [facility] Address [address] [place] [address] Phone Care Team Providers Care Statistician Applied Name Role Phone Michelle Barrios MD Primary Care Provider Encounter Details Date Type Department Care Team (Late st Contact Info) Description 04/07/2019 Procedure Pass [facility] L&D Procedures [address] [place] [address] Social History Tobacco Use Types Packs/Day Years [...] on filedocumented in this encounter Care Teams Statistician Applied Relationship Specialty Start Date End Date Michelle Barrios MD [address] [place] [address] [place] [phone] PCP - General Internal Medicine 09/11/18 documented as of this encounter Additional Source Comments The information contained in this document represents components of the legal health record. It is not the complete legal health record.[facility]
== END 2025-06-05 16:09 | disposition home or self-care (01) ==
LOC: HO.HPSW 15:47
PROVIDERS: PCP Internal Medicine; Visit Provider Nurse Practitioner Family
DX: J45.909 Unspecified asthma, uncomplicated (principal); R05.9 Cough, unspecified
CPT/HCPCS: 99214

== ENCOUNTER → 2025-06-05 15:46 | Outpatient (BNVA) | payer OTHER, SELFPAY | PROVIDERS: PCP Internal Medicine; Visit Provider Nurse Practitioner Family | DX: J45.909 Unspecified asthma, uncomplicated (principal); R05.9 Cough, unspecified | CPT/HCPCS: 99212 ==